=== PATIENT | female | born 1960 | race Caucasian/White ===

== ENCOUNTER 2020-05-07 14:31 | Emergency (ER) | payer OTHER ==
[~2020-05-07 14:31] MED LIST: SINGULAIR10 MG PO; TRINTELLIX PO; ZYRTEC10 M3 PO
[2020-05-07 16:15] LABS: BASOPHIL 0.5 % (0-2); EOSINOPHIL 0.8 % (0-5); HCT 45.1 % (37.0-47.0); HGB 15.1 g/dl (12.5-16.0); LYMPHOCYTE 30.5 % (15-48); MCHC 33.5 g/dL (32.0-36.0); MCV 89.5 fL (78.0-100.0); MONOCYTE 8.2 % (0-12); MPV 9.4 fL (6.0-9.5); NEUTROPHIL 59.8 % (41-80); NRBC 0; PLT 297 K/uL (150-400); RBC 5.04 M/uL (4.20-5.40); RDW 12.3 % (11.5-14.0); WBC 6.5 K/uL (4.0-10.5)
[2020-05-07 16:25] LABS: INR 0.99 (0.9-1.2); PROTHROMBIN TIME 12.4 SECONDS (11.4-13.6)
[2020-05-07 16:41] LABS: ALBUMIN 4.1 g/dL (3.4-5.0); BILIRUBIN - TOTAL 0.3 mg/dL (0.2-1.0); BUN/CREAT RATIO (CALC) 13.8 RATIO; CREATININE 0.87 mg/dL (0.51-0.95); GLOBULIN (CALCULATION) 3.4 g/dL; TOTAL PROTEIN 7.5 g/dL (6.4-8.2)
[2020-05-07] MEDS ORDERED: DICLOFENAC SODI75 MG PO (18:22)
[2020-05-07] MEDS ORDERED: PRILOSEC20 MG PO (18:22)
[2020-06-18] MEDS ORDERED: PROBIOTIC1 EAC1 PO (07:47)
[2020-06-18] MEDS ORDERED: DAILY VITAMIN1 EAC2 PO (07:48)
[2020-06-18] MEDS ORDERED: MELATONIN5 M2 PO (07:48)
[2020-06-18] MEDS ORDERED: CARAFATE1 GM PO (10:07)
[2020-06-18] MEDS ORDERED: PROTONIX 40MG T40 MG PO (10:07)
== END 2020-05-07 18:39 | disposition home or self-care (01) ==
LOC: FER 14:31
PROVIDERS: Emergency Medicine
DX: R07.89 Other chest pain (principal); Z85.3 Personal history of malignant neoplasm of breast
CPT/HCPCS: 36415; 71045; 80053; 84484; 85025; 85610; 85730; 93005; J2930

== ENCOUNTER → 2020-06-18 | Day surgery (SDC) | payer OTHER ==
[~2020-06-18] MED LIST changes: +CARAFATE1 GM PO; +DAILY VITAMIN1 EAC2 PO; +DICLOFENAC SODI75 MG PO; +MELATONIN5 M2 PO; +PRILOSEC20 MG PO; +PROBIOTIC1 EAC1 PO; +PROTONIX 40MG T40 MG PO
== END | disposition home or self-care (01) ==
LOC: FAS 07:28
DX: K29.70 Gastritis, unspecified, without bleeding (principal); K21.9 Gastro-esophageal reflux disease without esophagitis; K57.90 Diverticulosis of intestine, part unspecified, without perforation or abscess without bleeding; K31.89 Other diseases of stomach and duodenum; G43.909 Migraine, unspecified, not intractable, without status migrainosus; G47.30 Sleep apnea, unspecified; J45.909 Unspecified asthma, uncomplicated; E78.79 Other disorders of bile acid and cholesterol metabolism; E78.2 Mixed hyperlipidemia; F32.9 Major depressive disorder, single episode, unspecified; Z85.3 Personal history of malignant neoplasm of breast; Z90.49 Acquired absence of other specified parts of digestive tract; Z82.49 Family history of ischemic heart disease and other diseases of the circulatory system; Z87.891 Personal history of nicotine dependence; Z20.822 Contact with and (suspected) exposure to COVID-19; Z87.19 Personal history of other diseases of the digestive system; Z99.81 Dependence on supplemental oxygen
CPT/HCPCS: J2704; J7120